=== PATIENT | female | born 1970 | race Caucasian/White ===

== ENCOUNTER 2019-08-22 17:59 | Inpatient (IN) | payer OTHER ==
[~2019-08-22] VITALS: Ht 154.9 cm; Wt 210.0 kg
[2019-08-22] MEDS ORDERED: LOSARTAN POTASS25 MG (18:05)
[2019-08-22] MEDS ORDERED: TENORMIN25 MG (18:05)
[2019-08-22] MEDS ORDERED: SYNTHROID50 MCG (18:05)
--- NOTE | 2019-08-22 18:06 | NUR ---
PTE REFIERE DOLOR ABDOMINAL DESDE NELLY SE CHRIS S/V YSE UBIAC EN AREA DE OBSERVACION
[2019-08-25] MEDS ORDERED: INTESTINEX680 M1 PO (08:59)
[2019-08-25] MEDS ORDERED: CIPRO500 MG PO (08:59)
[2019-08-25] MEDS ORDERED: HYOSCYAMINE0.125 M1 SL (08:59)
[2019-08-25] MEDS ORDERED: FLAGYL500MG PO (09:00)
== END 2019-08-25 11:10 | disposition home or self-care (01) | DRG 392 ==
LOC: ER 17:59 → SURH 18:58
PROVIDERS: ADMIT Surgery
PROC: BW21YZZ Computerized Tomography (CT Scan) of Abdomen and Pelvis using Other Contrast (ICD-10-PCS; principal; 2019-08-24)
DX: K52.89 Other specified noninfective gastroenteritis and colitis (principal); D25.9 Leiomyoma of uterus, unspecified